=== PATIENT | female | born 1995 | race Caucasian/White ===

== ENCOUNTER 2017-08-02 12:58 | Emergency (ER) | payer BC ==
--- NOTE | 2017-08-02 14:10 | EDM.PDOC ---
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 The patient states she has not had sexual intercourse the last 1 week and has restarted her follow up renal care with [facility] and has her next appointment on August 13. The patient has no gynecologic history or surgeries and has had no systemic complaints such as vomiting or abdominal cramping and bleeding with this . The patient states that she woke this morning and was doing normal activities and was raking the front yard and then went to go to the bathroom and had urination and when she wiped she saw dark blood and she thought she saw some clots. She has not used a pad since that time and says that the only time she is seeing bleeding as when she wipes at the toilet bowl. She is currently sitting in the ED talking to me and says that she is not having bleeding in her underwear. She has no flank pain and she only had the one episode of some lower abdominal/pelvic cramping when she had the first episode of bleeding. Review of systems: As per history of present illness and below otherwise all systems reviewed and negative. Past medical history: As per history of present illness and as reviewed below otherwise noncontributory. Surgical history: As per history of present illness and as reviewed below otherwise noncontributory. . Social history: No reported history of drug or alcohol abuse. Family history: As per history of present illness and as reviewed below otherwise noncontributory. Physical exam: General: Well-developed well-nourished female who moves easily in the ED without distress. Vital signs are noted by me HEENT: Atraumatic, normocephalic, negative for conjunctival pallor or scleral icterus, mucous membranes moist, throat clear, neck supple, nontender, trachea midline. Lungs: Clear to auscultation, breath sounds equal bilaterally, chest nontender. Heart: S1S2, regular rhythm no overt murmurs Abdomen: Soft, nondistended, nontender. Negative for masses or hepatosplenomegaly. Negative for costovertebral tenderness. Pelvis: Stable nontender. Genitourinary: Cervix is closed and there is no bleeding appreciated in the vault. Uterus is bulky about 6-7 weeks size with no adnexal tenderness. Rectal: Deferred. Extremities: Atraumatic, negative for cords or calf pain. Neurovascular unremarkable. Neuro: Awake, alert, oriented. Cranial nerves II through XII unremarkable. Cerebellum unremarkable. Motor and sensory unremarkable throughout. Exam nonfocal. Diagnostics: CBC UA urine culture if indicated serum quantitative hCG pelvic ultrasound ABO Rh Therapeutics: All testing results were discussed with the patient and I am currently awaiting a callback from Dr. Cheung who is covering for Dr. Gray. I will discuss with her the lab tests as well as the ultrasound and discuss care plan for home. 1521: Case was discussed with Dr. Cheung who says the patient can go home with strict precautions and that their office will contact her on Friday for repeat hormone levels and exam in the clinic. Patient is aware to be available to be seen on Friday and she is aware of reasons to return to the ED. Impression: Threatened versus early Definitive disposition and diagnosis as appropriate pending reevaluation and review of above. - Related Data Allergies Allergy/AdvReac Type Severity Reaction Status Date / Time Penicillins Allergy Cannot Verified 08/02/17 13:43 Remember Home Meds: Home Meds . [No Known Home Meds] 08/02/17 [History] Past Medical History - Past Health History Medical/Surgical History: Denies Medical/Surgical History - Infectious Disease History Infectious Disease History: Reports: Chicken Pox Social & Family History - Family History Family Medical History: Noncontributory - Tobacco Use Smoking Status *Q: Never Smoker - Caffeine Use Caffeine Use: Reports: None - Recreational Drug Use Recreational Drug Use: No ED ROS GENERAL - Review of Systems Review Of Systems: ROS reveals no pertinent complaints other than HPI. ED EXAM, GENERAL - Physical Exam Exam: See Below (See dictation) Course - Vital Signs Last Recorded V/S: Last Vital Signs Temp 36.9 C 08/02/17 13:44 Pulse 100 08/02/17 13:44 Resp 18 08/02/17 13:44 BP 139/96 H 08/02/17 13:44 Pulse Ox 99 08/02/17 13:44 - Orders/Labs/Meds Orders: Active Orders 24 hr Category Date Time Status OB 1st Tri Sgl 1st Gest [US] Stat Exams 08/02/17 13:13 Taken UA W/MICROSCOPIC [URIN] Stat Lab 08/02/17 13:26 Ordered Labs: Laboratory Tests 08/02/17 08/02/17 08/02/17 Range/Units 13:26 13:26 13:26 WBC 6.25 (4.0-11.0) K/uL RBC 5.33 (4.30-5.90) M/uL Hgb 14.6 (12.0-16.0) g/dL Hct 43.3 (36.0-46.0) % MCV 81.2 (80.0-98.0) fL MCH 27.4 (27.0-32.0) pg MCHC 33.7 (31.0-37.0) g/dL RDW Std Deviation 39.7 (28.0-62.0) fl RDW Coeff of Brittni 13 (11.0-15.0) % Plt Count 187 (150-400) K/uL MPV 10.40 (7.40-12.00) fL Neut % (Auto) 70.2 (48.0-80.0) % Lymph % (Auto) 20.8 (16.0-40.0) % Bureau % (Auto) 8.3 (0.0-15.0) % Eos % (Auto) 0.5 (0.0-7.0) % Baso % (Auto) 0.2 (0.0-1.5) % Neut # (Auto) 4.4 (1.4-5.7) K/uL Lymph # (Auto) 1.3 (0.6-2.4) K/uL Bureau # (Auto) 0.5 (0.0-0.8) K/uL Eos # (Auto) 0.0 (0.0-0.7) K/uL Baso # (Auto) 0.0 (0.0-0.1) K/uL Nucleated RBC % 0.0 /100WBC Nucleated RBCs # 0 K/uL HCG, Quant 1448.0 mIU/mL Urine Color YELLOW Urine Appearance CLEAR Urine pH 5.5 (5.0-8.0) Ur Specific [place] <= 1.005 (1.001-1.035) Urine Protein NEGATIVE (NEGATIVE) mg/dL Urine Glucose (UA) NEGATIVE (NEGATIVE) mg/dL Urine Ketones NEGATIVE (NEGATIVE) mg/dL Urine Occult Blood SMALL H (NEGATIVE) Urine Nitrite NEGATIVE (NEGATIVE) Urine Bilirubin NEGATIVE (NEGATIVE) Urine Urobilinogen 0.2 (<2.0) EU/dL Ur Leukocyte Esterase NEGATIVE (NEGATIVE) Urine RBC 0-2 (0-2/HPF) Urine WBC 0-1 (0-5/HPF) Ur Epithelial Cells RARE (NONE-FEW) Urine Bacteria RARE (NEGATIVE) Blood Type 08/02/17 Range/Units 13:26 WBC (4.0-11.0) K/uL RBC (4.30-5.90) M/uL Hgb (12.0-16.0) g/dL Hct (36.0-46.0) % MCV (80.0-98.0) fL MCH (27.0-32.0) pg MCHC (31.0-37.0) g/dL RDW Std Deviation (28.0-62.0) fl RDW Coeff of Brittni (11.0-15.0) % Plt Count (150-400) K/uL MPV (7.40-12.00) fL Neut % (Auto) (48.0-80.0) % Lymph % (Auto) (16.0-40.0) % Bureau % (Auto) (0.0-15.0) % Eos % (Auto) (0.0-7.0) % Baso % (Auto) (0.0-1.5) % Neut # (Auto) (1.4-5.7) K/uL Lymph # (Auto) (0.6-2.4) K/uL Bureau # (Auto) (0.0-0.8) K/uL Eos # (Auto) (0.0-0.7) K/uL Baso # (Auto) (0.0-0.1) K/uL Nucleated RBC % /100WBC Nucleated RBCs # K/uL HCG, Quant mIU/mL Urine Color Urine Appearance Urine pH (5.0-8.0) Ur Specific [place] (1.001-1.035) Urine Protein (NEGATIVE) mg/dL Urine Glucose (UA) (NEGATIVE) mg/dL Urine Ketones (NEGATIVE) mg/dL Urine Occult Blood (NEGATIVE) Urine Nitrite (NEGATIVE) Urine Bilirubin (NEGATIVE) Urine Urobilinogen (<2.0) EU/dL Ur Leukocyte Esterase (NEGATIVE) Urine RBC (0-2/HPF) Urine WBC (0-5/HPF) Ur Epithelial Cells (NONE-FEW) Urine Bacteria (NEGATIVE) Blood Type A POSITIVE Departure - Departure Time of Disposition: 15:25 Disposition: Home, Self-Care 01 Condition: Good Clinical Impression: Threatened - Discharge Information Referrals: PCP,None [Primary Care Provider] - Forms: ED Department Discharge Additional Instructions: The following information is given to patients seen in the emergency department who are being discharged to home. This information is to outline your options for follow-up care. We provide all patients seen in our emergency department with a follow-up referral. The need for follow-up, as well as the timing and circumstances, are variable depending upon the specifics of your emergency department visit. If you don't have a primary care physician on staff, we will provide you with a referral. We always advise you to contact your personal physician following an emergency department visit to inform them of the circumstance of the visit and for follow-up with them and/or the need for any referrals to a consulting specialist. The emergency department will also refer you to a specialist when appropriate. This referral assures that you have the opportunity for followup care with a specialist. All of these measure are taken in an effort to provide you with optimal care, which includes your followup. Under all circumstances we always encourage you to contact your private physician who remains a resource for coordinating your care. When calling for followup care, please make the office aware that this follow-up is from your recent emergency room visit. If for any reason you are refused follow-up, please contact the [facility] emergency department at and ask to speak to the emergency department charge nurse. [facility] [address] [place] [address] [phone] Push hydration and rest as much as possible and strict pelvic rest as we discussed until you're followed up in the clinic. Dr. Gray's nurse will contact you on Friday to be re-seen in the clinic Friday and have repeat testing performed. Please be available for that phone call and that office visit. Return to ER as needed and as we discussed. - My Orders Last 24 Hours: My Active Orders 08/02/17 13:13 OB 1st Tri Sgl 1st Gest [US] Stat 08/02/17 13:26 UA W/MICROSCOPIC [URIN] Stat - Assessment/Plan Last 24 Hours: My Active Orders 08/02/17 13:13 OB 1st Tri Sgl 1st Gest [US] Stat 08/02/17 13:26 UA W/MICROSCOPIC [URIN] Stat
--- NOTE | 2017-08-04 13:55 | US ---
EXAM DATE: 08/02/17 PATIENT'S AGE: 22 Patient: WON LAY Facility: [place], [place] Site . Site : 1995 Study: US OB Pelvis [id number] 1:50:52 PM Ordering Physician: Doctor Ennis Final Report: INDICATION: Vaginal bleeding cramping TECHNIQUE: Real-time jacques-scale imaging of the pelvis was performed. FINDINGS: Sonographic imaging demonstrates presence of a probable intrauterine gestational sac measuring 5 millimeters. No pole, yolk sac seen. No perigestational hemorrhage visualized. Right ovary measures 1.7 x 2.5 by 1.6 cm and appears unremarkable. Normal blood flow to the right ovary. Left ovary measures 3 x 2.1 by 3.7 cm. Normal blood flow to the left ovary. Small amount of free fluid adjacent to left ovary. Hypoechoic small area adjacent to the left ovary could represent minimal amount of complex free fluid, exophytic left ovarian/paraovarian complex cyst or adnexal mass. IMPRESSION: 1. Probable 5 millimeter intrauterine gestational sac without yolk sac or pole seen. Findings probably reflect a very early IUP however correlation with HCG levels, close interval follow-up would be suggested given the left adnexal finding, ectopic not completely excluded. 2. Hypoechoic small area adjacent to left ovary indeterminate and could represent complex rounded free-fluid, exophytic left ovarian or paraovarian complex cyst versus adnexal mass . Dictated by Danielle Palacio MD @ Aug 02 2017 2:13PM (Electronic Signature) Report Signed by Proxy. MONSE
== END 2017-08-02 15:31 | disposition home or self-care (01) ==
LOC: MW.ED 12:58
DX: O20.0 Threatened abortion (principal); Z3A.01 Less than 8 weeks gestation of pregnancy; Z88.0 Allergy status to penicillin
CPT/HCPCS: 36415; 76801; 76801-26; 81001; 84702; 85025; 86900; 86901; 99284-25

== ENCOUNTER 2019-02-08 06:14 | Inpatient (IN) | payer BC ==
[2019-02-08] MEDS ORDERED: Tranexamic Acid 1,000 MG in Sodium Chloride 0.9% 100 ML IV PRN (07:18)
[2019-02-08] MEDS ORDERED: Sodium Chloride 0.9% 10 ML Syringe FLUSH PRN (07:18)
[2019-02-08] MEDS ORDERED: Lidocaine 1% 50 ML MDV INJECT PRN (07:18)
[2019-02-08] MEDS ORDERED: Butorphanol 1 MG/ML SDV IVPUSH PRN (07:18)
[2019-02-08] MEDS ORDERED: Carboprost Tromethamine 250 MCG/1 ML Amp IM PRN (07:18)
[2019-02-08] MEDS ORDERED: Misoprostol 200 MCG Tab PO PRN (07:18)
[2019-02-08] MEDS ORDERED: Methylergonovine 0.2 MG/1 ML Amp IM PRN (07:18)
[2019-02-08] MEDS ORDERED: Sodium Chloride 0.9% 10 ML SDV IV PRN (07:18)
[2019-02-08] MEDS ORDERED: Water For Irrigation,Sterile 1,000 ML Container IRR PRN (07:18)
[2019-02-08] MEDS ORDERED: Nalbuphine 10 MG/1 ML Vial IVPUSH PRN (07:18)
[2019-02-08] MEDS ORDERED: Sodium Chloride 0.9% 2.5 ML Syringe FLUSH PRN (07:18)
[2019-02-08] MEDS ORDERED: Oxytocin/0.9 % Sodium Chloride 30 UNIT/500 ML BAG IV SCH ×2 (07:30→17:00)
[2019-02-08] MEDS: Lactated Ringers 1,000 ML IV SCH ×4 (07:30→11:06)
[2019-02-08] MEDS ORDERED: Bupivacaine 0.25% 10 ML SDV ONE (08:45)
[2019-02-08] MEDS ORDERED: fentaNYL 100 MCG/2 ML SDV ONE (08:45)
[2019-02-08 09:19] LABS: BLOOD UREA NITROGEN,BUN 8 mg/dL (7.0-18.0); CHLORIDE,CL 102 mmol/L (98-107); GLUCOSE RANDOM 80 mg/dL (74-106); POTASSIUM,K 4.3 mmol/L (3.5-5.1); SODIUM,NA 137 mmol/L (136-145)
--- NOTE | 2019-02-08 09:31 | PCM.PREANE ---
Preanesthetic Assessment - Anesthesia/Transfusion/Family Hx Anesthesia History: No Prior Anesthesia - Review of Systems General: No Symptoms Pulmonary: No Symptoms Cardiovascular: No Symptoms Gastrointestinal: No Symptoms Neurological: No Symptoms Other: Reports: None - Physical Assessment Height: 1.7 m Weight: 87.997 kg ASA Class: 2 Mental Status: Alert & Oriented x3 Dentition: Reports: Normal Dentition Lungs: Clear to Auscultation, Normal Respiratory Effort Cardiovascular: Regular Rate, Regular Rhythm - Lab Values: Laboratory Last Values WBC 10.92 K/uL (4.0-11.0) 02/08/19 07:34 RBC 4.81 M/uL (4.30-5.90) 02/08/19 07:34 Hgb 13.0 g/dL (12.0-16.0) 02/08/19 07:34 Hct 39.8 % (36.0-46.0) 02/08/19 07:34 MCV 82.7 fL (80.0-98.0) 02/08/19 07:34 MCH 27.0 pg (27.0-32.0) 02/08/19 07:34 MCHC 32.7 g/dL (31.0-37.0) 02/08/19 07:34 RDW Std Deviation 41.7 fl (28.0-62.0) 02/08/19 07:34 RDW Coeff of Brittni 14 % (11.0-15.0) 02/08/19 07:34 Plt Count 172 K/uL (150-400) 02/08/19 07:34 MPV 12.00 fL (7.40-12.00) 02/08/19 07:34 Nucleated RBC % 0.0 /100WBC 02/08/19 07:34 Nucleated RBCs # 0 K/uL 02/08/19 07:34 Sodium 137 mmol/L (136-145) 02/08/19 07:34 Potassium 4.3 mmol/L (3.5-5.1) 02/08/19 07:34 Chloride 102 mmol/L (98-107) 02/08/19 07:34 Carbon Dioxide 22.0 mmol/L (21.0-32.0) 02/08/19 07:34 BUN 8 mg/dL (7.0-18.0) 02/08/19 07:34 Creatinine 0.6 mg/dL (0.6-1.0) 02/08/19 07:34 Est Cr Clr Drug Dosing 140.60 mL/min 02/08/19 07:34 Estimated GFR (MDRD) > 60.0 ml/min 02/08/19 07:34 Glucose 80 mg/dL (74-106) 02/08/19 07:34 Uric Acid 2.8 mg/dL (2.6-7.2) 02/08/19 07:34 Calcium 8.4 mg/dL (8.5-10.1) L 02/08/19 07:34 Total Bilirubin 0.4 mg/dL (0.2-1.0) 02/08/19 07:34 AST 22 IU/L (15-37) 02/08/19 07:34 ALT 17 IU/L (14-63) 02/08/19 07:34 Alkaline Phosphatase 103 U/L (46-116) 02/08/19 07:34 Total Protein 6.2 g/dL (6.4-8.2) L 02/08/19 07:34 Albumin 3.0 g/dL (3.4-5.0) L 02/08/19 07:34 Globulin 3.2 g/dL (2.6-4.0) 02/08/19 07:34 Albumin/Globulin Ratio 0.9 (0.9-1.6) 02/08/19 07:34 Urine Color YELLOW 02/08/19 07:50 Urine Appearance CLEAR 02/08/19 07:50 Urine pH 6.5 (5.0-8.0) 02/08/19 07:50 Ur Specific [place] <= 1.005 (1.001-1.035) 02/08/19 07:50 Urine Protein NEGATIVE mg/dL (NEGATIVE) 02/08/19 07:50 Urine Glucose (UA) NEGATIVE mg/dL (NEGATIVE) 02/08/19 07:50 Urine Ketones NEGATIVE mg/dL (NEGATIVE) 02/08/19 07:50 Urine Occult Blood SMALL (NEGATIVE) H 02/08/19 07:50 Urine Nitrite NEGATIVE (NEGATIVE) 02/08/19 07:50 Urine Bilirubin NEGATIVE (NEGATIVE) 02/08/19 07:50 Urine Urobilinogen 0.2 EU/dL (<2.0) 02/08/19 07:50 Ur Leukocyte Esterase NEGATIVE (NEGATIVE) 02/08/19 07:50 Ur Random Creatinine 14.9 mg/dL 02/08/19 07:50 U Random Total Protein < 6.0 mg/dL (<11.9) 02/08/19 07:50 Protein/Creatinin Ratio TNP 02/08/19 07:50 Blood Type A POSITIVE 02/08/19 07:34 Antibody Screen NEGATIVE 02/08/19 07:34 - Allergies Allergies/Adverse Reactions: Allergies Allergy/AdvReac Type Severity Reaction Status Date / Time Penicillins Allergy Cannot Verified 08/02/17 13:43 Remember - Acknowledgements Anesthesia Type Planned: Epidural Pt an Appropriate Candidate for the Planned Anesthesia: Yes Alternatives and Risks of Anesthesia Discussed w Pt/Guardian: Yes Pt/Guardian Understands and Agrees with Anesthesia Plan: Yes PreAnesthesia Questionnaire - Past Health History Medical/Surgical History: Denies Medical/Surgical History 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: - Infectious Disease History Infectious Disease History: Reports: Chicken Pox - SUBSTANCE USE Smoking Status *Q: Former Smoker Tobacco Use Within Last Twelve Months: Cigarettes Second Hand Smoke Exposure: No Recreational Drug Use History: No - HOME MEDS Home Medications: Home Meds Vit #76/Iron,Carb/Fa [Pnv 29-1 Tablet] 1 tab PO DAILY 02/08/19 [History ] - CURRENT (IN HOUSE) MEDS Current Meds: Current Medications Butorphanol Tartrate (Stadol) 1 mg IVPUSH Q1H PRN PRN Reason: Pain Carboprost Tromethamine (Hemabate Ds) 250 mcg IM ASDIRECTED PRN PRN Reason: Post Hemorrhage Lactated Ringer's (Ringers, Lactated) 1,000 mls @ 150 mls/hr IV ASDIRECTED JOHAN Last Admin: 02/08/19 09:14 Dose: 150 mls/hr Oxytocin/Sodium Chloride (Oxytocin 30 Unit/500 Ml-Ns) 30 unit in 500 mls @ 500 mls/hr IV TITRATE JOHAN Tranexamic Acid 1,000 mg/ (Sodium Chloride) 110 mls @ 660 mls/hr IV ONETIME PRN PRN Reason: Bleeding Lidocaine HCl (Xylocaine 1%) 50 ml INJECT ONETIME PRN PRN Reason: Laceration repair Methylergonovine Maleate (Methergine) 0.2 mg IM ASDIRECTED PRN PRN Reason: Post Hemorrhage Misoprostol (Cytotec) 200 mcg PO ONETIME PRN PRN Reason: Post Hemorrhage Nalbuphine HCl (Nubain) 10 mg IVPUSH Q1H PRN PRN Reason: Pain (severe 7-10) Last Admin: 02/08/19 08:25 Dose: 10 mg Sodium Chloride (Saline Flush) 10 ml FLUSH ASDIRECTED PRN PRN Reason: Keep Vein Open Sodium Chloride (Saline Flush) 2.5 ml FLUSH ASDIRECTED PRN PRN Reason: Keep Vein Open Sodium Chloride (Normal Saline) 10 ml IV ASDIRECTED PRN PRN Reason: IV Use Sterile Water (Sterile Water For Irrigation) 1,000 ml IRR ASDIRECTED PRN PRN Reason: delivery Discontinued Medications Bupivacaine HCl (Sensorcaine-Mpf 0.25%) Confirm Administered Dose 10 ml .ROUTE .STK-MED ONE Stop: 02/08/19 08:46 Fentanyl (Sublimaze) Confirm Administered Dose 100 mcg .ROUTE .STK-MED ONE Stop: 02/08/19 08:46 Fentanyl/Bupivacaine HCl (Dhlrjiop-Msngy-Id 2 Mcg/Ml-0.125%) Confirm Administered Dose 100 mls @ as directed .ROUTE .STK-MED ONE Stop: 02/08/19 08:46
[2019-02-08] MEDS ORDERED: Benzocaine/Menthol 20%-0.5% Spray 78 GM Cannister TOP PRN (18:35)
[2019-02-08] MEDS ORDERED: Ibuprofen 400 MG Tab PO PRN (18:35)
[2019-02-08] MEDS ORDERED: Lanolin 100% Cream 7 GM Tube TOP PRN (18:35)
[2019-02-08] MEDS ORDERED: Acetaminophen 500 MG Tab PO PRN (18:35)
[2019-02-08] MEDS ORDERED: Bisacodyl 10 MG Supp RECTAL PRN (18:35)
[2019-02-08] MEDS ORDERED: Witch Hazel Medicated Pads 40/Jar TOP PRN (18:35)
[2019-02-08] MEDS ORDERED: oxyCODONE 5 MG Tab PO PRN (18:35)
[2019-02-08] MEDS ORDERED: Docusate Sodium 100 MG Cap PO PRN (18:35)
--- NOTE | 2019-02-08 18:42 | PCM.DEL ---
Addendum entered and electronically signed by Brandee Vance 02/09/19 07:40: Giovana Steele is a 23 yo G2 now P1011. Original Note: <Brandee Vance - Last Filed: 02/08/19 18:36> L & D Note - General Info Date of Service: 02/08/19 Mother's Due Date: 02/15/19 - Delivery Note Labor: Spontaneous Delivery Outcome: Livebirth Delivery Method: Spontaneous Vaginal Delivery-Single Delivery Mode: Spontaneous Presentation: Right Occiput Anterior (RODRÍGUEZ) Nuchal Cord: None Anesthesia Type: Epidural Amniotic Fluid Description: Clear Episiotomy Type: None Laceration: 2nd Degree, Perineal Suture type: Vicryl Suture size: 2-0 Placenta: Intact, Spontaneous Cord: 3 Vessels Estimated Blood Loss: 100 Resuscitation Needed: No [place]: Bulb Syringe, Stimulated, Warmed, [place] Used, Warmer Used Provider: Angela Nava Score 1 min: 7 Score 5 min: 9 Second Stage Interventions: Reports: Encouragement Given, Pushing Effectively, Pushing, Feet in Foot Rests Delivery Comments (Free Text/Narrative):: Live female born at 1744 weighing 3470 g, APAGARs 7&9 - General Info Date of Service: 02/08/19 - Patient Data Weight - Most Recent: 87.997 kg Lab Results Last 24 Hours: Laboratory Results - last 24 hr 02/08/19 02/08/19 02/08/19 Range/Units 07:34 07:34 07:34 WBC 10.92 (4.0-11.0) K/uL RBC 4.81 (4.30-5.90) M/uL Hgb 13.0 (12.0-16.0) g/dL Hct 39.8 (36.0-46.0) % MCV 82.7 (80.0-98.0) fL MCH 27.0 (27.0-32.0) pg MCHC 32.7 (31.0-37.0) g/dL RDW Std Deviation 41.7 (28.0-62.0) fl RDW Coeff of Brittni 14 (11.0-15.0) % Plt Count 172 (150-400) K/uL MPV 12.00 (7.40-12.00) fL Nucleated RBC % 0.0 /100WBC Nucleated RBCs # 0 K/uL Sodium 137 (136-145) mmol/L Potassium 4.3 (3.5-5.1) mmol/L Chloride 102 (98-107) mmol/L Carbon Dioxide 22.0 (21.0-32.0) mmol/L BUN 8 (7.0-18.0) mg/dL Creatinine 0.6 (0.6-1.0) mg/dL Est Cr Clr Drug Dosing 140.60 mL/min Estimated GFR (MDRD) > 60.0 ml/min Glucose 80 (74-106) mg/dL Uric Acid 2.8 (2.6-7.2) mg/dL Calcium 8.4 L (8.5-10.1) mg/dL Total Bilirubin 0.4 (0.2-1.0) mg/dL AST 22 (15-37) IU/L ALT 17 (14-63) IU/L Alkaline Phosphatase 103 (46-116) U/L Total Protein 6.2 L (6.4-8.2) g/dL Albumin 3.0 L (3.4-5.0) g/dL Globulin 3.2 (2.6-4.0) g/dL Albumin/Globulin Ratio 0.9 (0.9-1.6) Urine Color Urine Appearance Urine pH (5.0-8.0) Ur Specific [place] (1.001-1.035) Urine Protein (NEGATIVE) mg/dL Urine Glucose (UA) (NEGATIVE) mg/dL Urine Ketones (NEGATIVE) mg/dL Urine Occult Blood (NEGATIVE) Urine Nitrite (NEGATIVE) Urine Bilirubin (NEGATIVE) Urine Urobilinogen (<2.0) EU/dL Ur Leukocyte Esterase (NEGATIVE) Ur Random Creatinine mg/dL U Random Total Protein (<11.9) mg/dL Protein/Creatinin Ratio Blood Type A POSITIVE Antibody Screen NEGATIVE 02/08/19 02/08/19 Range/Units 07:50 07:50 WBC (4.0-11.0) K/uL RBC (4.30-5.90) M/uL Hgb (12.0-16.0) g/dL Hct (36.0-46.0) % MCV (80.0-98.0) fL MCH (27.0-32.0) pg MCHC (31.0-37.0) g/dL RDW Std Deviation (28.0-62.0) fl RDW Coeff of Brittni (11.0-15.0) % Plt Count (150-400) K/uL MPV (7.40-12.00) fL Nucleated RBC % /100WBC Nucleated RBCs # K/uL Sodium (136-145) mmol/L Potassium (3.5-5.1) mmol/L Chloride (98-107) mmol/L Carbon Dioxide (21.0-32.0) mmol/L BUN (7.0-18.0) mg/dL Creatinine (0.6-1.0) mg/dL Est Cr Clr Drug Dosing mL/min Estimated GFR (MDRD) ml/min Glucose (74-106) mg/dL Uric Acid (2.6-7.2) mg/dL Calcium (8.5-10.1) mg/dL Total Bilirubin (0.2-1.0) mg/dL AST (15-37) IU/L ALT (14-63) IU/L Alkaline Phosphatase (46-116) U/L Total Protein (6.4-8.2) g/dL Albumin (3.4-5.0) g/dL Globulin (2.6-4.0) g/dL Albumin/Globulin Ratio (0.9-1.6) Urine Color YELLOW Urine Appearance CLEAR Urine pH 6.5 (5.0-8.0) Ur Specific [place] <= 1.005 (1.001-1.035) Urine Protein NEGATIVE (NEGATIVE) mg/dL Urine Glucose (UA) NEGATIVE (NEGATIVE) mg/dL Urine Ketones NEGATIVE (NEGATIVE) mg/dL Urine Occult Blood SMALL H (NEGATIVE) Urine Nitrite NEGATIVE (NEGATIVE) Urine Bilirubin NEGATIVE (NEGATIVE) Urine Urobilinogen 0.2 (<2.0) EU/dL Ur Leukocyte Esterase NEGATIVE (NEGATIVE) Ur Random Creatinine 14.9 mg/dL U Random Total Protein < 6.0 (<11.9) mg/dL Protein/Creatinin Ratio TNP Blood Type Antibody Screen Med Orders - Current: Current Medications Butorphanol Tartrate (Stadol) 1 mg IVPUSH Q1H PRN PRN Reason: Pain Carboprost Tromethamine (Hemabate Ds) 250 mcg IM ASDIRECTED PRN PRN Reason: Post Hemorrhage Lactated Ringer's (Ringers, Lactated) 1,000 mls @ 150 mls/hr IV ASDIRECTED JOHAN Last Admin: 02/08/19 11:06 Dose: 150 mls/hr Oxytocin/Sodium Chloride (Oxytocin 30 Unit/500 Ml-Ns) 30 unit in 500 mls @ 500 mls/hr IV TITRATE JOHAN Tranexamic Acid 1,000 mg/ (Sodium Chloride) 110 mls @ 660 mls/hr IV ONETIME PRN PRN Reason: Bleeding Oxytocin/Sodium Chloride (Oxytocin 30 Unit/500 Ml-Ns) 30 unit in 500 mls @ 2 mls/hr IV TITRATE JOHAN; Protocol Last Admin: 02/08/19 16:56 Dose: 2 munits/min, 2 mls/hr Lidocaine HCl (Xylocaine 1%) 50 ml INJECT ONETIME PRN PRN Reason: Laceration repair Methylergonovine Maleate (Methergine) 0.2 mg IM ASDIRECTED PRN PRN Reason: Post Hemorrhage Misoprostol (Cytotec) 200 mcg PO ONETIME PRN PRN Reason: Post Hemorrhage Nalbuphine HCl (Nubain) 10 mg IVPUSH Q1H PRN PRN Reason: Pain (severe 7-10) Last Admin: 02/08/19 08:25 Dose: 10 mg Sodium Chloride (Saline Flush) 10 ml FLUSH ASDIRECTED PRN PRN Reason: Keep Vein Open Sodium Chloride (Saline Flush) 2.5 ml FLUSH ASDIRECTED PRN PRN Reason: Keep Vein Open Sodium Chloride (Normal Saline) 10 ml IV ASDIRECTED PRN PRN Reason: IV Use Sterile Water (Sterile Water For Irrigation) 1,000 ml IRR ASDIRECTED PRN PRN Reason: delivery Discontinued Medications Bupivacaine HCl (Sensorcaine-Mpf 0.25%) Confirm Administered Dose 10 ml .ROUTE .STK-MED ONE Stop: 02/08/19 08:46 Fentanyl (Sublimaze) Confirm Administered Dose 100 mcg .ROUTE .STK-MED ONE Stop: 02/08/19 08:46 Fentanyl/Bupivacaine HCl (Xaikzgka-Klouw-Ze 2 Mcg/Ml-0.125%) Confirm Administered Dose 100 mls @ as directed .ROUTE .STK-MED ONE Stop: 02/08/19 08:46 Fentanyl/Bupivacaine HCl (Cblbhsnl-Oqjmn-Fe 2 Mcg/Ml-0.125%) Confirm Administered Dose 100 mls @ as directed .ROUTE .STK-MED ONE Stop: 02/08/19 14:48 - Problem List & Annotations (1) Vaginal delivery SNOMED Code(s): 304203794 Code(s): O80 - ENCOUNTER FOR FULL-TERM UNCOMPLICATED DELIVERY Status: Resolved Current Visit: Yes - Problem List Review Problem List Initiated/Reviewed/Updated: Yes - Assessment Assessment:: Giovana Steele is a 23 yo G2 now P2011 s/p uncomplicated at 39+0. She is doing well. No peripartum complications. She had a 2nd degree laceration that repaired nicely. - Plan Plan:: Continue post- monitoring, watch lochia, and manage pain. <Angela Nava - Last Filed: 02/09/19 08:32> - Patient Data Vitals - Most Recent: Last Vital Signs Temp 36.3 C 02/09/19 04:00 Pulse 68 02/09/19 04:00 Resp 18 02/09/19 04:00 BP 144/89 H 02/09/19 04:00 Pulse Ox 96 02/09/19 04:00 Lab Results Last 24 Hours: Laboratory Results - last 24 hr 02/08/19 02/08/19 02/08/19 Range/Units 07:34 07:34 07:50 Hgb (12.0-16.0) g/dL Hct (36.0-46.0) % Cord ABG pH (7.18-7.38) Cord ABG Base Excess (-10--2) Cord VBG pH (7.25-7.45) Cord VBG Base Excess (-10--2) Sodium 137 (136-145) mmol/L Potassium 4.3 (3.5-5.1) mmol/L Chloride 102 (98-107) mmol/L Carbon Dioxide 22.0 (21.0-32.0) mmol/L BUN 8 (7.0-18.0) mg/dL Creatinine 0.6 (0.6-1.0) mg/dL Est Cr Clr Drug Dosing 140.60 mL/min Estimated GFR (MDRD) > 60.0 ml/min Glucose 80 (74-106) mg/dL Uric Acid 2.8 (2.6-7.2) mg/dL Calcium 8.4 L (8.5-10.1) mg/dL Total Bilirubin 0.4 (0.2-1.0) mg/dL AST 22 (15-37) IU/L ALT 17 (14-63) IU/L Alkaline Phosphatase 103 (46-116) U/L Total Protein 6.2 L (6.4-8.2) g/dL Albumin 3.0 L (3.4-5.0) g/dL Globulin 3.2 (2.6-4.0) g/dL Albumin/Globulin Ratio 0.9 (0.9-1.6) Ur Random Creatinine 14.9 mg/dL U Random Total Protein < 6.0 (<11.9) mg/dL Protein/Creatinin Ratio TNP Blood Type A POSITIVE Antibody Screen NEGATIVE 02/08/19 02/09/19 Range/Units 17:44 05:44 Hgb 11.7 L (12.0-16.0) g/dL Hct 36.3 (36.0-46.0) % Cord ABG pH 7.227 (7.18-7.38) Cord ABG Base Excess -5 (-10--2) Cord VBG pH 7.329 (7.25-7.45) Cord VBG Base Excess -6 (-10--2) Sodium (136-145) mmol/L Potassium (3.5-5.1) mmol/L Chloride (98-107) mmol/L Carbon Dioxide (21.0-32.0) mmol/L BUN (7.0-18.0) mg/dL Creatinine (0.6-1.0) mg/dL Est Cr Clr Drug Dosing mL/min Estimated GFR (MDRD) ml/min Glucose (74-106) mg/dL Uric Acid (2.6-7.2) mg/dL Calcium (8.5-10.1) mg/dL Total Bilirubin (0.2-1.0) mg/dL AST (15-37) IU/L ALT (14-63) IU/L Alkaline Phosphatase (46-116) U/L Total Protein (6.4-8.2) g/dL Albumin (3.4-5.0) g/dL Globulin (2.6-4.0) g/dL Albumin/Globulin Ratio (0.9-1.6) Ur Random Creatinine mg/dL U Random Total Protein (<11.9) mg/dL Protein/Creatinin Ratio Blood Type Antibody Screen Med Orders - Current: Current Medications Acetaminophen (Tylenol Extra Strength) 500 mg PO Q4H PRN PRN Reason: Pain Acetaminophen (Tylenol Extra Strength) 1,000 mg PO Q4H PRN PRN Reason: Pain Last Admin: 02/09/19 08:25 Dose: 1,000 mg Benzocaine/Menthol (Dermoplast Pain Relief 20%-0.5% Marion) 78 gm TOP ASDIRECTED PRN PRN Reason: Perineal Comfort Measure Last Admin: 02/09/19 01:33 Dose: 1 spray Bisacodyl (Dulcolax) 10 mg RECTAL ONETIME PRN PRN Reason: Constipation Butorphanol Tartrate (Stadol) 1 mg IVPUSH Q1H PRN PRN Reason: Pain Carboprost Tromethamine (Hemabate Ds) 250 mcg IM ASDIRECTED PRN PRN Reason: Post Hemorrhage Docusate Sodium (Colace) 100 mg PO BID PRN PRN Reason: Constipation Emollient Ointment (Lansinoh Hpa) 0 gm TOP ASDIRECTED PRN PRN Reason: Sore Nipples Last Admin: 02/09/19 01:33 Dose: 1 applic Lactated Ringer's (Ringers, Lactated) 1,000 mls @ 150 mls/hr IV ASDIRECTED JOHAN Last Admin: 02/08/19 11:06 Dose: 150 mls/hr Oxytocin/Sodium Chloride (Oxytocin 30 Unit/500 Ml-Ns) 30 unit in 500 mls @ 500 mls/hr IV TITRATE JOHAN Tranexamic Acid 1,000 mg/ (Sodium Chloride) 110 mls @ 660 mls/hr IV ONETIME PRN PRN Reason: Bleeding Oxytocin/Sodium Chloride (Oxytocin 30 Unit/500 Ml-Ns) 30 unit in 500 mls @ 2 mls/hr IV TITRATE JOHAN; Protocol Last Admin: 02/08/19 16:56 Dose: 2 munits/min, 2 mls/hr Ibuprofen (Motrin) 400 mg PO Q4H PRN PRN Reason: Pain Ibuprofen (Motrin) 800 mg PO Q6H PRN PRN Reason: Pain Last Admin: 02/09/19 08:26 Dose: 800 mg Lidocaine HCl (Xylocaine 1%) 50 ml INJECT ONETIME PRN PRN Reason: Laceration repair Methylergonovine Maleate (Methergine) 0.2 mg IM ASDIRECTED PRN PRN Reason: Post Hemorrhage Misoprostol (Cytotec) 200 mcg PO ONETIME PRN PRN Reason: Post Hemorrhage Nalbuphine HCl (Nubain) 10 mg IVPUSH Q1H PRN PRN Reason: Pain (severe 7-10) Last Admin: 02/08/19 08:25 Dose: 10 mg Oxycodone HCl (Oxycodone) 5 mg PO Q2H PRN PRN Reason: Pain Sodium Chloride (Saline Flush) 10 ml FLUSH ASDIRECTED PRN PRN Reason: Keep Vein Open Sodium Chloride (Saline Flush) 2.5 ml FLUSH ASDIRECTED PRN PRN Reason: Keep Vein Open Sodium Chloride (Normal Saline) 10 ml IV ASDIRECTED PRN PRN Reason: IV Use Sterile Water (Sterile Water For Irrigation) 1,000 ml IRR ASDIRECTED PRN PRN Reason: delivery Torito العراقي (Keith) 1 pad TOP ASDIRECTED PRN PRN Reason: comfort care Last Admin: 02/09/19 01:31 Dose: 1 pad Discontinued Medications Bupivacaine HCl (Sensorcaine-Mpf 0.25%) Confirm Administered Dose 10 ml .ROUTE .STK-MED ONE Stop: 02/08/19 08:46 Fentanyl (Sublimaze) Confirm Administered Dose 100 mcg .ROUTE .STK-MED ONE Stop: 02/08/19 08:46 Fentanyl/Bupivacaine HCl (Gihadrzo-Vdspx-Qb 2 Mcg/Ml-0.125%) Confirm Administered Dose 100 mls @ as directed .ROUTE .STK-MED ONE Stop: 02/08/19 08:46 Fentanyl/Bupivacaine HCl (Jjhweolk-Lfosb-Wi 2 Mcg/Ml-0.125%) Confirm Administered Dose 100 mls @ as directed .ROUTE .STK-MED ONE Stop: 02/08/19 14:48 - Problem List & Annotations (1) Vaginal delivery SNOMED Code(s): 170149726 Code(s): O80 - ENCOUNTER FOR FULL-TERM UNCOMPLICATED DELIVERY Status: Resolved Current Visit: Yes Onset Date: ~02/08/19 - My Orders Last 24 Hours: My Active Orders 02/08/19 17:00 Oxytocin/0.9 % Sodium Chloride [Oxytocin 30 Unit/500 ML-NS] 30 unit in 500 ml IV TITRATE 02/08/19 18:35 Patient Status [ADT] Routine Vital Signs [RC] PER UNIT ROUTINE Acetaminophen [Tylenol Extra Strength] 1,000 mg PO Q4H PRN Acetaminophen [Tylenol Extra Strength] 500 mg PO Q4H PRN Benzocaine/Menthol [Dermoplast Pain Relief 20%-0.5% Marion] 78 gm TOP ASDIRECTED PRN Bisacodyl [Dulcolax] 10 mg RECTAL ONETIME PRN Docusate Sodium [Colace] 100 mg PO BID PRN Ibuprofen [Motrin] 400 mg PO Q4H PRN Ibuprofen [Motrin] 800 mg PO Q6H PRN Lanolin [Lansinoh HPA] See Dose Instructions TOP ASDIRECTED PRN Witch Dulce Maria [Tucks] 1 pad TOP ASDIRECTED PRN oxyCODONE 5 mg PO Q2H PRN Assess Lochia [WOMSER] Per Unit Routine Assess Uterine Involution [WOMSER] Per Unit Routine Peripheral IV Discontinue [OM.PC] Routine
[2019-02-09] MEDS: Acetaminophen 500 MG Tab PO PRN ×3 (01:31→13:15)
[2019-02-09] MEDS: Ibuprofen 800 MG Tab PO PRN ×2 (01:32→08:26)
--- NOTE | 2019-02-09 07:29 | PCM.PNPP ---
<Brandee Vance E - Last Filed: 02/09/19 07:19> - General Info Date of Service: 02/09/19 Admission Dx/Problem (Free Text): Giovana Steele is a 23 yo G2 now P1011 PPD1 s/p uncomplicated Subjective Update: Giovana states she is doing very well this AM. Her pain is managed well with mild abdominal cramping during . Pt states she was able to get some rest last night. She is excited to go home today. Functional Status: Reports: Pain Controlled, Tolerating Diet, Ambulating, Urinating - Review of Systems General: Reports: Appetite. Denies: Fever, Weakness, Fatigue, Chills HEENT: Denies: Headaches, Visual Changes Pulmonary: Denies: Shortness of Breath Cardiovascular: Denies: Chest Pain Gastrointestinal: Reports: Abdominal Pain (some abdominal cramping with breast feeding) Genitourinary: Denies: Dysuria Neurological: Denies: Confusion, Dizziness, Headache Psychiatric: Denies: Confusion, Depression, Mood Lability, Anxiety - General Info Date of Service: 02/09/19 - Patient Data Vital Signs - Most Recent: Last Vital Signs Temp 36.3 C 02/09/19 04:00 Pulse 68 02/09/19 04:00 Resp 18 02/09/19 04:00 BP 144/89 H 02/09/19 04:00 Pulse Ox 96 02/09/19 04:00 Weight - Most Recent: 87.997 kg Lab Results - Last 24 Hours: Laboratory Results - last 24 hr 02/08/19 02/08/19 02/08/19 Range/Units 07:34 07:34 07:34 WBC 10.92 (4.0-11.0) K/uL RBC 4.81 (4.30-5.90) M/uL Hgb 13.0 (12.0-16.0) g/dL Hct 39.8 (36.0-46.0) % MCV 82.7 (80.0-98.0) fL MCH 27.0 (27.0-32.0) pg MCHC 32.7 (31.0-37.0) g/dL RDW Std Deviation 41.7 (28.0-62.0) fl RDW Coeff of Brittni 14 (11.0-15.0) % Plt Count 172 (150-400) K/uL MPV 12.00 (7.40-12.00) fL Nucleated RBC % 0.0 /100WBC Nucleated RBCs # 0 K/uL Cord ABG pH (7.18-7.38) Cord ABG Base Excess (-10--2) Cord VBG pH (7.25-7.45) Cord VBG Base Excess (-10--2) Sodium 137 (136-145) mmol/L Potassium 4.3 (3.5-5.1) mmol/L Chloride 102 (98-107) mmol/L Carbon Dioxide 22.0 (21.0-32.0) mmol/L BUN 8 (7.0-18.0) mg/dL Creatinine 0.6 (0.6-1.0) mg/dL Est Cr Clr Drug Dosing 140.60 mL/min Estimated GFR (MDRD) > 60.0 ml/min Glucose 80 (74-106) mg/dL Uric Acid 2.8 (2.6-7.2) mg/dL Calcium 8.4 L (8.5-10.1) mg/dL Total Bilirubin 0.4 (0.2-1.0) mg/dL AST 22 (15-37) IU/L ALT 17 (14-63) IU/L Alkaline Phosphatase 103 (46-116) U/L Total Protein 6.2 L (6.4-8.2) g/dL Albumin 3.0 L (3.4-5.0) g/dL Globulin 3.2 (2.6-4.0) g/dL Albumin/Globulin Ratio 0.9 (0.9-1.6) Urine Color Urine Appearance Urine pH (5.0-8.0) Ur Specific [place] (1.001-1.035) Urine Protein (NEGATIVE) mg/dL Urine Glucose (UA) (NEGATIVE) mg/dL Urine Ketones (NEGATIVE) mg/dL Urine Occult Blood (NEGATIVE) Urine Nitrite (NEGATIVE) Urine Bilirubin (NEGATIVE) Urine Urobilinogen (<2.0) EU/dL Ur Leukocyte Esterase (NEGATIVE) Ur Random Creatinine mg/dL U Random Total Protein (<11.9) mg/dL Protein/Creatinin Ratio Blood Type A POSITIVE Antibody Screen NEGATIVE 02/08/19 02/08/19 02/08/19 Range/Units 07:50 07:50 17:44 WBC (4.0-11.0) K/uL RBC (4.30-5.90) M/uL Hgb (12.0-16.0) g/dL Hct (36.0-46.0) % MCV (80.0-98.0) fL MCH (27.0-32.0) pg MCHC (31.0-37.0) g/dL RDW Std Deviation (28.0-62.0) fl RDW Coeff of Brittni (11.0-15.0) % Plt Count (150-400) K/uL MPV (7.40-12.00) fL Nucleated RBC % /100WBC Nucleated RBCs # K/uL Cord ABG pH 7.227 (7.18-7.38) Cord ABG Base Excess -5 (-10--2) Cord VBG pH 7.329 (7.25-7.45) Cord VBG Base Excess -6 (-10--2) Sodium (136-145) mmol/L Potassium (3.5-5.1) mmol/L Chloride (98-107) mmol/L Carbon Dioxide (21.0-32.0) mmol/L BUN (7.0-18.0) mg/dL Creatinine (0.6-1.0) mg/dL Est Cr Clr Drug Dosing mL/min Estimated GFR (MDRD) ml/min Glucose (74-106) mg/dL Uric Acid (2.6-7.2) mg/dL Calcium (8.5-10.1) mg/dL Total Bilirubin (0.2-1.0) mg/dL AST (15-37) IU/L ALT (14-63) IU/L Alkaline Phosphatase (46-116) U/L Total Protein (6.4-8.2) g/dL Albumin (3.4-5.0) g/dL Globulin (2.6-4.0) g/dL Albumin/Globulin Ratio (0.9-1.6) Urine Color YELLOW Urine Appearance CLEAR Urine pH 6.5 (5.0-8.0) Ur Specific [place] <= 1.005 (1.001-1.035) Urine Protein NEGATIVE (NEGATIVE) mg/dL Urine Glucose (UA) NEGATIVE (NEGATIVE) mg/dL Urine Ketones NEGATIVE (NEGATIVE) mg/dL Urine Occult Blood SMALL H (NEGATIVE) Urine Nitrite NEGATIVE (NEGATIVE) Urine Bilirubin NEGATIVE (NEGATIVE) Urine Urobilinogen 0.2 (<2.0) EU/dL Ur Leukocyte Esterase NEGATIVE (NEGATIVE) Ur Random Creatinine 14.9 mg/dL U Random Total Protein < 6.0 (<11.9) mg/dL Protein/Creatinin Ratio TNP Blood Type Antibody Screen 02/09/19 Range/Units 05:44 WBC (4.0-11.0) K/uL RBC (4.30-5.90) M/uL Hgb 11.7 L (12.0-16.0) g/dL Hct 36.3 (36.0-46.0) % MCV (80.0-98.0) fL MCH (27.0-32.0) pg MCHC (31.0-37.0) g/dL RDW Std Deviation (28.0-62.0) fl RDW Coeff of Brittni (11.0-15.0) % Plt Count (150-400) K/uL MPV (7.40-12.00) fL Nucleated RBC % /100WBC Nucleated RBCs # K/uL Cord ABG pH (7.18-7.38) Cord ABG Base Excess (-10--2) Cord VBG pH (7.25-7.45) Cord VBG Base Excess (-10--2) Sodium (136-145) mmol/L Potassium (3.5-5.1) mmol/L Chloride (98-107) mmol/L Carbon Dioxide (21.0-32.0) mmol/L BUN (7.0-18.0) mg/dL Creatinine (0.6-1.0) mg/dL Est Cr Clr Drug Dosing mL/min Estimated GFR (MDRD) ml/min Glucose (74-106) mg/dL Uric Acid (2.6-7.2) mg/dL Calcium (8.5-10.1) mg/dL Total Bilirubin (0.2-1.0) mg/dL AST (15-37) IU/L ALT (14-63) IU/L Alkaline Phosphatase (46-116) U/L Total Protein (6.4-8.2) g/dL Albumin (3.4-5.0) g/dL Globulin (2.6-4.0) g/dL Albumin/Globulin Ratio (0.9-1.6) Urine Color Urine Appearance Urine pH (5.0-8.0) Ur Specific [place] (1.001-1.035) Urine Protein (NEGATIVE) mg/dL Urine Glucose (UA) (NEGATIVE) mg/dL Urine Ketones (NEGATIVE) mg/dL Urine Occult Blood (NEGATIVE) Urine Nitrite (NEGATIVE) Urine Bilirubin (NEGATIVE) Urine Urobilinogen (<2.0) EU/dL Ur Leukocyte Esterase (NEGATIVE) Ur Random Creatinine mg/dL U Random Total Protein (<11.9) mg/dL Protein/Creatinin Ratio Blood Type Antibody Screen Med Orders - Current: Current Medications Acetaminophen (Tylenol Extra Strength) 500 mg PO Q4H PRN PRN Reason: Pain Acetaminophen (Tylenol Extra Strength) 1,000 mg PO Q4H PRN PRN Reason: Pain Last Admin: 02/09/19 01:31 Dose: 1,000 mg Benzocaine/Menthol (Dermoplast Pain Relief 20%-0.5% [place]) 78 gm TOP ASDIRECTED PRN PRN Reason: Perineal Comfort Measure Last Admin: 02/09/19 01:33 Dose: 1 spray Bisacodyl (Dulcolax) 10 mg RECTAL ONETIME PRN PRN Reason: Constipation Butorphanol Tartrate (Stadol) 1 mg IVPUSH Q1H PRN PRN Reason: Pain Carboprost Tromethamine (Hemabate Ds) 250 mcg IM ASDIRECTED PRN PRN Reason: Post Hemorrhage Docusate Sodium (Colace) 100 mg PO BID PRN PRN Reason: Constipation Emollient Ointment (Lansinoh Hpa) 0 gm TOP ASDIRECTED PRN PRN Reason: Sore Nipples Last Admin: 02/09/19 01:33 Dose: 1 applic Lactated Ringer's (Ringers, Lactated) 1,000 mls @ 150 mls/hr IV ASDIRECTED JOHAN Last Admin: 02/08/19 11:06 Dose: 150 mls/hr Oxytocin/Sodium Chloride (Oxytocin 30 Unit/500 Ml-Ns) 30 unit in 500 mls @ 500 mls/hr IV TITRATE [facility] Tranexamic Acid 1,000 mg/ (Sodium Chloride) 110 mls @ 660 mls/hr IV ONETIME PRN PRN Reason: Bleeding Oxytocin/Sodium Chloride (Oxytocin 30 Unit/500 Ml-Ns) 30 unit in 500 mls @ 2 mls/hr IV TITRATE JOHAN; Protocol Last Admin: 02/08/19 16:56 Dose: 2 munits/min, 2 mls/hr Ibuprofen (Motrin) 400 mg PO Q4H PRN PRN Reason: Pain Ibuprofen (Motrin) 800 mg PO Q6H PRN PRN Reason: Pain Last Admin: 02/09/19 01:32 Dose: 800 mg Lidocaine HCl (Xylocaine 1%) 50 ml INJECT ONETIME PRN PRN Reason: Laceration repair Methylergonovine Maleate (Methergine) 0.2 mg IM ASDIRECTED PRN PRN Reason: Post Hemorrhage Misoprostol (Cytotec) 200 mcg PO ONETIME PRN PRN Reason: Post Hemorrhage Nalbuphine HCl (Nubain) 10 mg IVPUSH Q1H PRN PRN Reason: Pain (severe 7-10) Last Admin: 02/08/19 08:25 Dose: 10 mg Oxycodone HCl (Oxycodone) 5 mg PO Q2H PRN PRN Reason: Pain Sodium Chloride (Saline Flush) 10 ml FLUSH ASDIRECTED PRN PRN Reason: Keep Vein Open Sodium Chloride (Saline Flush) 2.5 ml FLUSH ASDIRECTED PRN PRN Reason: Keep Vein Open Sodium Chloride (Normal Saline) 10 ml IV ASDIRECTED PRN PRN Reason: IV Use Sterile Water (Sterile Water For Irrigation) 1,000 ml IRR ASDIRECTED PRN PRN Reason: delivery Witch Dulce Maria (Tucks) 1 pad TOP ASDIRECTED PRN PRN Reason: comfort care Last Admin: 02/09/19 01:31 Dose: 1 pad Discontinued Medications Bupivacaine HCl (Sensorcaine-Mpf 0.25%) Confirm Administered Dose 10 ml .ROUTE .STK-MED ONE Stop: 02/08/19 08:46 Fentanyl (Sublimaze) Confirm Administered Dose 100 mcg .ROUTE .STK-MED ONE Stop: 02/08/19 08:46 Fentanyl/Bupivacaine HCl (Ucojichg-Iugfr-Pd 2 Mcg/Ml-0.125%) Confirm Administered Dose 100 mls @ as directed .ROUTE .STK-MED ONE Stop: 02/08/19 08:46 Fentanyl/Bupivacaine HCl (Zarstpez-Glcqy-Pv 2 Mcg/Ml-0.125%) Confirm Administered Dose 100 mls @ as directed .ROUTE .STK-MED ONE Stop: 02/08/19 14:48 - Interaction Disposition, : at Bedside (sleeping in bassinet) Feeding: Breastfed ; Nursed Well Support Person: Significant Other - Recovery Exam Fundal Tone: Firm Fundal Level: 2 Fingerbreadths Above Umbilicus Fundal Placement: Midline Lochia Amount: Scant Lochia Color: Rubra/Red Perineum Description: Other (see below) (healing after 2nd degree laceration repair) Episiotomy/Laceration: None Bladder Status: Voiding Urinary Elimination: Voided - Exam General: Alert, Oriented HEENT: Pupils Equal, Pupils Reactive, EOMI, Mucous Membr. Moist/[place] Lungs: Clear to Auscultation, Normal Respiratory Effort Cardiovascular: Regular Rate, Regular Rhythm GI/Abdominal Exam: Soft, Non-Tender, No Distention, No Mass Extremities: Normal Inspection, Normal Range of Motion, Non-Tender, Normal Capillary Refill Skin: Warm, Dry, Intact Wound/Incisions: Healing Well Neurological: No New Focal Deficit Psy/Mental Status: Alert, Normal Affect, Normal Mood - Problem List & Annotations (1) Vaginal delivery SNOMED Code(s): 000740330 Code(s): O80 - ENCOUNTER FOR FULL-TERM UNCOMPLICATED DELIVERY Status: Resolved Current Visit: Yes Onset Date: ~02/08/19 - Problem List Review Problem List Initiated/Reviewed/Updated: Yes - Assessment Assessment:: Giovana Steele is a 23 yo G2 now P1011 s/p uncomplicated at 39+0. She is doing well. No PNC complications. No peripartum complications. She had a 2nd degree laceration that repaired nicely. Overall, doing well. - Plan Plan:: Continue post- monitoring, watch lochia, and manage pain. Pt will be discharged today (02/09/19). Pelvic rest for 6 wks. Continue adequate hydration and nutrition for and overall well- being. Follow-up with Dr. Armenta in clinic at 6 wks or sooner if you fever over 101F, rigid, tender abdomen, profuse vaginal bleeding, becomes confused or disoriented. <Angela Nava - Last Filed: 02/09/19 08:31> - General Info Subjective Update: Patient doing well , , ambulating - Patient Data Vital Signs - Most Recent: Last Vital Signs Temp 36.3 C 02/09/19 04:00 Pulse 68 02/09/19 04:00 Resp 18 02/09/19 04:00 BP 144/89 H 02/09/19 04:00 Pulse Ox 96 02/09/19 04:00 Lab Results - Last 24 Hours: Laboratory Results - last 24 hr 02/08/19 02/08/19 02/08/19 Range/Units 07:34 07:34 07:50 Hgb (12.0-16.0) g/dL Hct (36.0-46.0) % Cord ABG pH (7.18-7.38) Cord ABG Base Excess (-10--2) Cord VBG pH (7.25-7.45) Cord VBG Base Excess (-10--2) Sodium 137 (136-145) mmol/L Potassium 4.3 (3.5-5.1) mmol/L Chloride 102 (98-107) mmol/L Carbon Dioxide 22.0 (21.0-32.0) mmol/L BUN 8 (7.0-18.0) mg/dL Creatinine 0.6 (0.6-1.0) mg/dL Est Cr Clr Drug Dosing 140.60 mL/min Estimated GFR (MDRD) > 60.0 ml/min Glucose 80 (74-106) mg/dL Uric Acid 2.8 (2.6-7.2) mg/dL Calcium 8.4 L (8.5-10.1) mg/dL Total Bilirubin 0.4 (0.2-1.0) mg/dL AST 22 (15-37) IU/L ALT 17 (14-63) IU/L Alkaline Phosphatase 103 (46-116) U/L Total Protein 6.2 L (6.4-8.2) g/dL Albumin 3.0 L (3.4-5.0) g/dL Globulin 3.2 (2.6-4.0) g/dL Albumin/Globulin Ratio 0.9 (0.9-1.6) Ur Random Creatinine 14.9 mg/dL U Random Total Protein < 6.0 (<11.9) mg/dL Protein/Creatinin Ratio TNP Blood Type A POSITIVE Antibody Screen NEGATIVE 02/08/19 02/09/19 Range/Units 17:44 05:44 Hgb 11.7 L (12.0-16.0) g/dL Hct 36.3 (36.0-46.0) % Cord ABG pH 7.227 (7.18-7.38) Cord ABG Base Excess -5 (-10--2) Cord VBG pH 7.329 (7.25-7.45) Cord VBG Base Excess -6 (-10--2) Sodium (136-145) mmol/L Potassium (3.5-5.1) mmol/L Chloride (98-107) mmol/L Carbon Dioxide (21.0-32.0) mmol/L BUN (7.0-18.0) mg/dL Creatinine (0.6-1.0) mg/dL Est Cr Clr Drug Dosing mL/min Estimated GFR (MDRD) ml/min Glucose (74-106) mg/dL Uric Acid (2.6-7.2) mg/dL Calcium (8.5-10.1) mg/dL Total Bilirubin (0.2-1.0) mg/dL AST (15-37) IU/L ALT (14-63) IU/L Alkaline Phosphatase (46-116) U/L Total Protein (6.4-8.2) g/dL Albumin (3.4-5.0) g/dL Globulin (2.6-4.0) g/dL Albumin/Globulin Ratio (0.9-1.6) Ur Random Creatinine mg/dL U Random Total Protein (<11.9) mg/dL Protein/Creatinin Ratio Blood Type Antibody Screen Med Orders - Current: Current Medications Acetaminophen (Tylenol Extra Strength) 500 mg PO Q4H PRN PRN Reason: Pain Acetaminophen (Tylenol Extra Strength) 1,000 mg PO Q4H PRN PRN Reason: Pain Last Admin: 02/09/19 08:25 Dose: 1,000 mg Benzocaine/Menthol (Dermoplast Pain Relief 20%-0.5% [place]) 78 gm TOP ASDIRECTED PRN PRN Reason: Perineal Comfort Measure Last Admin: 02/09/19 01:33 Dose: 1 spray Bisacodyl (Dulcolax) 10 mg RECTAL ONETIME PRN PRN Reason: Constipation Butorphanol Tartrate (Stadol) 1 mg IVPUSH Q1H PRN PRN Reason: Pain Carboprost Tromethamine (Hemabate Ds) 250 mcg IM ASDIRECTED PRN PRN Reason: Post Hemorrhage Docusate Sodium (Colace) 100 mg PO BID PRN PRN Reason: Constipation Emollient Ointment (Lansinoh Hpa) 0 gm TOP ASDIRECTED PRN PRN Reason: Sore Nipples Last Admin: 02/09/19 01:33 Dose: 1 applic Lactated Ringer's (Ringers, Lactated) 1,000 mls @ 150 mls/hr IV ASDIRECTED JOHAN Last Admin: 02/08/19 11:06 Dose: 150 mls/hr Oxytocin/Sodium Chloride (Oxytocin 30 Unit/500 Ml-Ns) 30 unit in 500 mls @ 500 mls/hr IV TITRATE JOHAN Tranexamic Acid 1,000 mg/ (Sodium Chloride) 110 mls @ 660 mls/hr IV ONETIME PRN PRN Reason: Bleeding Oxytocin/Sodium Chloride (Oxytocin 30 Unit/500 Ml-Ns) 30 unit in 500 mls @ 2 mls/hr IV TITRATE JOHAN; Protocol Last Admin: 02/08/19 16:56 Dose: 2 munits/min, 2 mls/hr Ibuprofen (Motrin) 400 mg PO Q4H PRN PRN Reason: Pain Ibuprofen (Motrin) 800 mg PO Q6H PRN PRN Reason: Pain Last Admin: 02/09/19 08:26 Dose: 800 mg Lidocaine HCl (Xylocaine 1%) 50 ml INJECT ONETIME PRN PRN Reason: Laceration repair Methylergonovine Maleate (Methergine) 0.2 mg IM ASDIRECTED PRN PRN Reason: Post Hemorrhage Misoprostol (Cytotec) 200 mcg PO ONETIME PRN PRN Reason: Post Hemorrhage Nalbuphine HCl (Nubain) 10 mg IVPUSH Q1H PRN PRN Reason: Pain (severe 7-10) Last Admin: 02/08/19 08:25 Dose: 10 mg Oxycodone HCl (Oxycodone) 5 mg PO Q2H PRN PRN Reason: Pain Sodium Chloride (Saline Flush) 10 ml FLUSH ASDIRECTED PRN PRN Reason: Keep Vein Open Sodium Chloride (Saline Flush) 2.5 ml FLUSH ASDIRECTED PRN PRN Reason: Keep Vein Open Sodium Chloride (Normal Saline) 10 ml IV ASDIRECTED PRN PRN Reason: IV Use Sterile Water (Sterile Water For Irrigation) 1,000 ml IRR ASDIRECTED PRN PRN Reason: delivery Torito العراقي (Tucks) 1 pad TOP ASDIRECTED PRN PRN Reason: comfort care Last Admin: 02/09/19 01:31 Dose: 1 pad Discontinued Medications Bupivacaine HCl (Sensorcaine-Mpf 0.25%) Confirm Administered Dose 10 ml .ROUTE .STK-MED ONE Stop: 02/08/19 08:46 Fentanyl (Sublimaze) Confirm Administered Dose 100 mcg .ROUTE .STK-MED ONE Stop: 02/08/19 08:46 Fentanyl/Bupivacaine HCl (Orwvqhhd-Kwglx-Cj 2 Mcg/Ml-0.125%) Confirm Administered Dose 100 mls @ as directed .ROUTE .STK-MED ONE Stop: 02/08/19 08:46 Fentanyl/Bupivacaine HCl (Luzxmqfk-Efhio-Cy 2 Mcg/Ml-0.125%) Confirm Administered Dose 100 mls @ as directed .ROUTE .STK-MED ONE Stop: 02/08/19 14:48 - Problem List & Annotations (1) Vaginal delivery SNOMED Code(s): 443594943 Code(s): O80 - ENCOUNTER FOR FULL-TERM UNCOMPLICATED DELIVERY Status: Resolved Current Visit: Yes Onset Date: ~02/08/19 - Problem List Review Problem List Initiated/Reviewed/Updated: Yes - My Orders Last 24 Hours: My Active Orders 02/08/19 17:00 Oxytocin/0.9 % Sodium Chloride [Oxytocin 30 Unit/500 ML-NS] 30 unit in 500 ml IV TITRATE 02/08/19 18:35 Patient Status [ADT] Routine Vital Signs [RC] PER UNIT ROUTINE Acetaminophen [Tylenol Extra Strength] 1,000 mg PO Q4H PRN Acetaminophen [Tylenol Extra Strength] 500 mg PO Q4H PRN Benzocaine/Menthol [Dermoplast Pain Relief 20%-0.5% [place]] 78 gm TOP ASDIRECTED PRN Bisacodyl [Dulcolax] 10 mg RECTAL ONETIME PRN Docusate Sodium [Colace] 100 mg PO BID PRN Ibuprofen [Motrin] 400 mg PO Q4H PRN Ibuprofen [Motrin] 800 mg PO Q6H PRN Lanolin [Lansinoh HPA] See Dose Instructions TOP ASDIRECTED PRN Witch Dulce Maria [Tucks] 1 pad TOP ASDIRECTED PRN oxyCODONE 5 mg PO Q2H PRN Assess Lochia [WOMSER] Per Unit Routine Assess Uterine Involution [WOMSER] Per Unit Routine Peripheral IV Discontinue [OM.PC] Routine - Assessment Assessment:: agree - Plan Plan:: Agree with plan
--- NOTE | 2019-02-09 10:13 | OR ---
SURGEON: TANNER RAMIREZ DATE OF PROCEDURE:02/08/2019 PREOPERATIVE DIAGNOSIS: A 23-year-old G2, P 0-0-1-0, at 39 weeks and 1 day admitted in early labor. POSTOPERATIVE DIAGNOSIS: A 23-year-old G2, P 0-0-1-0, at 39 weeks and 1 day admitted in early labor. PROCEDURE: Normal spontaneous vaginal delivery, repair of second-degree vaginal laceration. ESTIMATED BLOOD LOSS: 300. IV FLUIDS: Pitocin running. ANESTHESIA: Epidural. NOTES AND FINDINGS: Live female delivered at 5:44 p.m. score is 7 and 9. Weight is 3470 g. BRIEF HISTORY: A 23-year-old, G2, P 0-0-1-0, at 39 weeks 1 day who came in complaining of contractions. She was 6 cm dilated. She was desiring epidural, which she got. She made cervical change, and she became fully dilated. DESCRIPTION OF PROCEDURE: With good pushing effort, the patient delivered the head subsequently by the anterior and posterior shoulder. The body of the was delivered. was placed on the maternal abdomen. Delayed cord clamping was observed. Cord blood gases were obtained. The placenta was delivered via controlled cord traction. The uterus was noted to be contracted. The perineal laceration was injected with local anesthesia. The second degree laceration was sutured in layers with 2.0 monocryl in layers. Normal lochia was noted. . The patient was left in Labor and Delivery room in stable condition. EMMANUEL VILLA /[id number] MTDLaura
--- NOTE | 2019-02-09 15:39 | PCM48HPAN ---
Post Anesthesia Note - EVALUATION WITHIN 48HRS OF ANESTHETIC Vital Signs in Normal Range: Yes Patient Participated in Evaluation: Yes Respiratory Function Stable: Yes Airway Patent: Yes Cardiovascular Function Stable: Yes Hydration Status Stable: Yes Pain Control Satisfactory: Yes Nausea and Vomiting Control Satisfactory: Yes Mental Status Recovered: Yes Vital Signs: Last Vital Signs Temp 36.3 C 02/09/19 08:00 Pulse 70 02/09/19 08:00 Resp 17 02/09/19 08:00 BP 133/82 02/09/19 08:00 Pulse Ox 98 02/09/19 08:00
== END 2019-02-09 22:00 | disposition home or self-care (01) | DRG 560 ==
LOC: MW.OBCHECK 06:14 → MW.OB 06:15 → MW.OBCHECK 07:18 → MW.OB 07:18 → OBSVTOIN 17:44 → MW.OB 18:35
PROVIDERS: ADMIT Obstetrics & Gynecology; ATTEND Obstetrics & Gynecology
PROC: 10E0XZZ Delivery of Products of Conception, External Approach (ICD-10-PCS; principal; 2019-02-08)
PROC: 0KQM0ZZ Repair Perineum Muscle, Open Approach (ICD-10-PCS; 2019-02-08)
PROC: 3E0R3BZ Introduction of Anesthetic Agent into Spinal Canal, Percutaneous Approach (ICD-10-PCS; 2019-02-08)
DX: O70.1 Second degree perineal laceration during delivery (principal); Z37.0 Single live birth; Z3A.39 39 weeks gestation of pregnancy
CPT/HCPCS: 01967; 36415; 51702; 59025; 59409; 80053; 81003; 82570; 82803; 84156; 84550; 85014; 85018; 85027; 86593; 86850; 86900; 86901; A9270-GY; J2300; J2590; J7120